=== PATIENT | female | born 1960 | race Caucasian/White ===

== ENCOUNTER 2023-10-20 14:51 | Emergency (ER) | payer MEDICAID ==
[~2023-10-20] VITALS: Ht 157.5 cm; Wt 65.3 kg
[2023-10-20 15:24] VITALS: BP 128/69; PULSE 84; RESP 20; TEMP 97.7; O2SAT 100
[2023-10-20] MEDS: KETOROLAC 30 MG/ML VIAL IM ONE (16:27)
[2023-10-20] MEDS: GABAPENTIN 300 MG CAP PO ONE (17:48)
[2023-10-20] MEDS ORDERED: GABA300C PO (17:59)
[2023-10-20 18:29] VITALS: BP 122/82; PULSE 78; RESP 16; TEMP 98; O2SAT 100
== END 2023-10-20 18:29 | disposition home or self-care (01) ==
LOC: MED 14:51
DX: G62.9 Polyneuropathy, unspecified (principal); R22.42 Localized swelling, mass and lump, left lower limb; Z79.899 Other long term (current) drug therapy
CPT/HCPCS: 93971; 96372; 99285; J1885